=== PATIENT | female | born 1985 | race Two or more races ===

== ENCOUNTER 2021-11-02 11:01 | Emergency (ER) | payer OTHER ==
[~2021-11-02] VITALS: Ht 162.6 cm; Wt 59.1 kg
[2021-11-02] MEDS ORDERED: AZIT500T66 PO (13:15)
[2021-11-02 13:20] VITALS: BP 106/46
== END 2021-11-02 13:34 | disposition home or self-care (01) ==
LOC: ER 11:01
DX: H66.91 Otitis media, unspecified, right ear (principal); F17.210 Nicotine dependence, cigarettes, uncomplicated; Z98.51 Tubal ligation status; Z88.0 Allergy status to penicillin

== ENCOUNTER 2022-03-17 16:56 | Emergency (ER) | payer OTHER ==
[~2022-03-17] VITALS: Ht 162.6 cm; Wt 57.7 kg
[~2022-03-17 16:56] MED LIST: AZIT500T66 PO
[2022-03-17 17:20] VITALS: BP 105/44
[2022-03-17 18:17] LABS: Urine Bacteria NONE SEEN /hpf (None Seen); Urine Blood Negative /uL (Negative); Urine Specific Gravity 1.019 (1.001-1.035); Urine WBC <1 /hpf (0 - 5)
[2022-03-17 18:36] LABS: Basophils # (auto) 0 10 ^3/uL (0-0.2); Basophils % (auto) 0.4 % (0.0-2.0); Eosinophils # (auto) 0.1 10 ^3/uL (0-0.8); Eosinophils % (auto) 1.9 % (0.0-7.0); Hematocrit 34.4 % (36.0-46.0); Hemoglobin 11.7 g/dL (12.2-16.2); Lymphocytes # (auto) 2.1 10 ^3/uL (0.4-5.4); Lymphocytes % (auto) 27.6 % (10.0-50.0); Mean Corpuscular Hemoglobin 31.7 pg (28.0-32.0); Mean Corpuscular Hgb Conc. 33.9 g/dL (32.0-36.0); Mean Corpuscular Volume 93.5 fL (80.0-100.0); Monocytes # (auto) 0.5 10 ^3/uL (0-1.3); Monocytes % (auto) 5.9 % (0.0-12.0); Neutrophils # (auto) 4.9 10 ^3/uL (1.6-8.6); Neutrophils % (auto) 64.2 % (37.0-80.0); Red Blood Cells 3.68 10^6/uL (4.0-5.20); Red Cell Distribution Width 13.3 % (11.8-14.3); White Blood Cell 7.7 10^3/uL (4.4-10.8)
[2022-03-17 18:39] LABS: Albumin 3.5 g/dL (3.4-5.0); Calcium 8.2 mg/dL (8.5-10.1); Potassium 4.3 mmol/L (3.5-5.1)
[2022-03-17 18:42] LABS: BUN/Creatinine Ratio 24.4; Bilirubin, Total 0.1 mg/dL (0.2-1.0)
[2022-03-17] MEDS ORDERED: DICY10CA PO (19:46)
[2022-03-17] MEDS ORDERED: ONDA-144 PO (19:46)
== END 2022-03-17 19:39 | disposition home or self-care (01) ==
LOC: ER 16:56
DX: A08.4 Viral intestinal infection, unspecified (principal); F17.210 Nicotine dependence, cigarettes, uncomplicated; Z98.51 Tubal ligation status; Z32.02 Encounter for pregnancy test, result negative; Z88.0 Allergy status to penicillin
CPT/HCPCS: 36415; 80053; 81001; 81025; 85025